=== PATIENT | female | born 1960 | race Hispanic/Latino ===

== ENCOUNTER 2022-03-14 17:15 | Emergency (ER) | payer MEDICARE, OTHER ==
[2022-03-14] MEDS ORDERED: Morphine 4 MG/ML VIAL ONE (20:23)
[2022-03-14] MEDS ORDERED: Acetaminophen 500 MG TAB ONE (20:23)
[2022-03-14] MEDS ORDERED: Ketorolac Tromethamine 30 MG/ML VIAL ONE (20:23)
== END 2022-03-14 22:12 | disposition home or self-care (01) ==
LOC: CSHERS 17:15
DX: M54.42 Lumbago with sciatica, left side (principal); E11.9 Type 2 diabetes mellitus without complications; E03.9 Hypothyroidism, unspecified; E78.5 Hyperlipidemia, unspecified; I10 Essential (primary) hypertension
CPT/HCPCS: 93923; 96372; J1885; J2270

== ENCOUNTER 2022-04-03 09:50 | Inpatient (IN) | payer OTHER, MEDICAID ==
[~2022-04-03 09:50] MED LIST: Iopamidol 370 76% 100 ML VIAL ONE
[2022-04-03 10:28] LABS: #Basophils 0.1 10x3/uL (0.0-0.2); #Eosinphils 0.2 10x3/uL (0.0-0.5); #Monocytes 0.6 10x3/uL (0.0-1.1); #Neutrophils 4.7 10x3/uL (1.5-8.4); %Basophils 0.7 % (0.0-2.0); %Lymphocytes 21.4 % (18.0-47.0); %Monocytes 8.9 % (0.0-10.0); %Neutrophils 65.7 % (40.0-75.0); Hemoglobin 12.7 g/dL (12.0-15.5); Mean Corpuscular Hemoglobin 30.4 pg (27.0-33.0); Mean Corpuscular Volume 89.5 fl (81.6-98.3); Mean Platelet Volume 9.6 fl (7.4-10.4); Platelet Count 198 10x3/uL (150-450); RBC Distribution Width 13.6 % (11.5-14.5); Red Blood Cell (RBC) Count 4.18 10x6/uL (3.90-5.03); White Blood Cell (WBC) Count 7.1 10x3/uL (3.5-10.5)
[2022-04-03 10:38] LABS: ALT (SGPT) 10 U/L (8-55); AST (SGOT) 20 U/L (5-34); Albumin 3.9 g/dL (3.5-5.0); Alkaline Phosphatase 72 U/L (40-110); Anion Gap 14 mmol/L (10-20); BUN (Urea Nitrogen) 14 mg/dL (9.8-20.1); Bilirubin, Total 0.7 mg/dL (0.2-1.2); Calc. Creatinine Clearance 0 mL/min (70-130); Calcium 8.6 mg/dL (7.8-10.44); Carbon Dioxide 24 mmol/L (22-29); Chloride 109 mmol/L (98-107); Globulin 2.8 g/dL (2.4-3.5); Glucose 152 mg/dL (70-105); Protein, Total 6.7 g/dL (6.0-8.3); Sodium 143 mmol/L (136-145)
[2022-04-03 11:11] LABS: SARS-CoV-2 NAA Rapid Test Not Detected (NotDetected)
[2022-04-03] MEDS ORDERED: Furosemide 40 MG/4 ML VIAL ONE (13:28)
[2022-04-03] MEDS ORDERED: Cefepime 2 GM VIAL ONE (13:28)
[2022-04-03] MEDS ORDERED: Acetaminophen 325 MG TAB PO PRN (14:10)
[2022-04-03] MEDS ORDERED: Senokot S 8.6-50 MG TAB PO PRN (14:10)
[2022-04-03] MEDS ORDERED: Guaifenesin DM 100-10/5 ML UDCUP PO PRN (14:10)
[2022-04-03] MEDS ORDERED: Ondansetron PF 4 MG/2 ML Vial IVP PRN (14:10)
[2022-04-03] MEDS ORDERED: Ondansetron ODT 4 MG TAB PO PRN (14:10)
[2022-04-03] MEDS ORDERED: Dextrose 50% Abboject 50 ML SYRINGE SLOW IVP PRN (14:32)
[2022-04-03] MEDS ORDERED: Dextrose 5% in Water 1,000 ML IV PRN (14:32)
[2022-04-03] MEDS ORDERED: Sodium Chloride 0.9% 1,000 ML IV SCH (17:30)
[2022-04-03] MEDS ORDERED: Azithromycin 500 MG in Sodium Chloride 0.9% 250 ML 250 ML IVPB SCH (18:00)
[2022-04-03 18:29] VITALS: BMI 46.0
[2022-04-03] MEDS: Insulin Regular 300 UNITS/3 ML VIAL SC PRN (18:49)
[2022-04-03] MEDS: HYDROcodone/Acetaminophen 10/325 mg Tablet PO SCH (20:46)
[2022-04-03] MEDS ORDERED: Atorvastatin Calcium 40 MG TAB PO SCH (21:00)
[2022-04-03] MEDS ORDERED: Trihexyphenidyl 2 MG TAB PO SCH (21:00)
[2022-04-03] MEDS ORDERED: cefTRIAXone\\ROCEPHIN 1 GM in Sodium Chloride 0.9% 100 ML IVPB SCH (21:00)
[2022-04-03] MEDS ORDERED: Gabapentin 300 MG CAP PO SCH (21:00)
[2022-04-03] MEDS ORDERED: Lantus 1000 UNITS/10 ML VIAL SC SCH (21:00)
[2022-04-03] MEDS: Carbidopa/Levodopa CR 50-200 mg Tablet PO SCH (21:08)
[2022-04-03] MEDS ORDERED: Baclofen 10 MG TAB PO SCH (21:15)
[2022-04-03] MEDS ORDERED: NUCYNTA 200 MG PO SCH ×2 (22:15→22:30)
[2022-04-04 05:15] LABS: #Basophils 0.1 10x3/uL (0.0-0.2); #Eosinphils 0.2 10x3/uL (0.0-0.5); #Monocytes 0.8 10x3/uL (0.0-1.1); #Neutrophils 5.1 10x3/uL (1.5-8.4); %Basophils 0.7 % (0.0-2.0); %Eosinophils 2.7 % (0.0-6.0); %Monocytes 9.1 % (0.0-10.0); %Neutrophils 59.3 % (40.0-75.0); Hemoglobin 12.1 g/dL (12.0-15.5); Mean Corpuscular HGB CONC 33.1 g/dL (32.0-36.0); Mean Corpuscular Hemoglobin 30.2 pg (27.0-33.0); Mean Corpuscular Volume 91.3 fl (81.6-98.3); Mean Platelet Volume 9.5 fl (7.4-10.4); Platelet Count 189 10x3/uL (150-450); RBC Distribution Width 13.3 % (11.5-14.5); Red Blood Cell (RBC) Count 4.01 10x6/uL (3.90-5.03); White Blood Cell (WBC) Count 8.6 10x3/uL (3.5-10.5)
[2022-04-04] MEDS ORDERED: HYDROcodone/Acetaminophen 10/325 mg Tablet PO PRN (05:25)
[2022-04-04] MEDS: HYDROcodone/Acetaminophen 10/325 mg Tablet PO SCH (05:33)
[2022-04-04 05:34] LABS: Anion Gap 13 mmol/L (10-20); BUN (Urea Nitrogen) 14 mg/dL (9.8-20.1); Calc. Creatinine Clearance 180 mL/min (70-130); Calcium 8.6 mg/dL (7.8-10.44); Carbon Dioxide 27 mmol/L (22-29); Chloride 104 mmol/L (98-107); Glucose 180 mg/dL (70-105); Potassium 3.4 mmol/L (3.5-5.1); Sodium 141 mmol/L (136-145)
[2022-04-04] MEDS ORDERED: Ventolin HFA Inhaler 60 PUFF INHALER INH PRN (05:35)
[2022-04-04] MEDS: Insulin Regular 300 UNITS/3 ML VIAL SC PRN (05:41)
[2022-04-04] MEDS ORDERED: Furosemide 40 MG/4 ML VIAL SLOW IVP SCH (06:00)
[2022-04-04] MEDS ORDERED: Levothyroxine Sodium 88 MCG TAB PO SCH (06:00)
[2022-04-04] MEDS ORDERED: Mometasone/Formoterol 200/5 60 PUFF INH SCH (06:30)
[2022-04-04] MEDS ORDERED: HumaLOG 300 UNITS/3 ML VIAL SC SCH ×2 (07:30→08:00)
[2022-04-04] MEDS ORDERED: Carvedilol 25 MG TAB PO SCH ×2 (08:00)
[2022-04-04] MEDS ORDERED: Lantus 1000 UNITS/10 ML VIAL SC SCH (09:00)
[2022-04-04] MEDS ORDERED: Mometasone 100 MCG/PUFF (1 INHALER) INH SCH (09:00)
[2022-04-04] MEDS ORDERED: Clopidogrel Bisulfate 75 MG TAB PO SCH ×2 (09:00)
[2022-04-04] MEDS ORDERED: Trihexyphenidyl 2 MG TAB PO SCH (09:00)
[2022-04-04] MEDS ORDERED: TAPENTADOL HCL 200 MG PO SCH (09:00)
[2022-04-04] MEDS ORDERED: Enoxaparin Sodium 40 MG/0.4 ML SYRINGE SC SCH (09:00)
[2022-04-04 09:10] LABS: Legionella Urinary Ag Negative (Negative); Strep pneumo Urine Ag NEGATIVE (NEGATIVE)
[2022-04-04] MEDS: Gabapentin 400 MG CAP PO SCH ×2 (10:18→16:42)
[2022-04-04] MEDS: Carbidopa/Levodopa 10-100 mg Tablet PO SCH ×2 (10:22→16:42)
[2022-04-04] MEDS: Carbidopa/Levodopa CR 50-200 mg Tablet PO SCH (10:23)
[2022-04-04] MEDS: Baclofen 10 MG TAB PO SCH ×2 (10:25→16:42)
[2022-04-04 12:17] VITALS: TEMP 97.8
[2022-04-04] MEDS ORDERED: cefTRIAXone\\ROCEPHIN 1 GM in Sodium Chloride 0.9% 100 ML IVPB SCH (12:30)
[2022-04-04] MEDS ORDERED: Azithromycin 500 MG in Sodium Chloride 0.9% 250 ML 250 ML IVPB SCH (12:30)
[2022-04-04 13:36] VITALS: BP 146/40
[2022-04-04] MEDS ORDERED: Atorvastatin Calcium 40 MG TAB PO SCH (21:00)
== END 2022-04-04 18:07 | disposition home health service (06) | DRG 193 ==
LOC: CSHERS 09:50 → CSHTELE 17:18
PROVIDERS: ADMIT Hospitalist; ATTEND Family Medicine
DX: J18.9 Pneumonia, unspecified organism (principal); J96.01 Acute respiratory failure with hypoxia; Z68.42 Body mass index [BMI] 45.0-49.9, adult; G20 Parkinson's disease; E78.5 Hyperlipidemia, unspecified; E11.51 Type 2 diabetes mellitus with diabetic peripheral angiopathy without gangrene; E66.01 Morbid (severe) obesity due to excess calories; I11.0 Hypertensive heart disease with heart failure; I50.9 Heart failure, unspecified; M19.90 Unspecified osteoarthritis, unspecified site; E03.9 Hypothyroidism, unspecified; M54.9 Dorsalgia, unspecified; I05.0 Rheumatic mitral stenosis; Z20.822 Contact with and (suspected) exposure to COVID-19; Z96.653 Presence of artificial knee joint, bilateral; Z96.642 Presence of left artificial hip joint; Z82.49 Family history of ischemic heart disease and other diseases of the circulatory system; I25.2 Old myocardial infarction; Z98.890 Other specified postprocedural states; Z79.899 Other long term (current) drug therapy; Z90.710 Acquired absence of both cervix and uterus; Z79.4 Long term (current) use of insulin; Z79.890 Hormone replacement therapy; Z79.891 Long term (current) use of opiate analgesic; Z79.2 Long term (current) use of antibiotics
CPT/HCPCS: 36415; 36416; 71045; 71275; 80048; 80053; 83735; 83880; 84145; 84443; 84484; 85025; 85379; 87040; 87449; 87899; 93005; 93306; J0456; J0692; J0696; J1650; J1815; J1940; J3490; J7050; Q9967

== ENCOUNTER 2024-03-09 13:32 | Emergency (ER) | payer OTHER ==
[2024-03-09 14:41] LABS: #Basophils 0.05 10x3/uL (0.0-0.2); #Monocytes 0.45 10x3/uL (0.0-1.1); #Neutrophils 4.24 10x3/uL (1.5-8.4); %Basophils 0.8 % (0.0-2.0); %Eosinophils 1.6 % (0.0-6.0); %Lymphocytes 21.5 % (18.0-47.0); %Monocytes 7.3 % (0.0-10.0); %Neutrophils 68.5 % (40.0-75.0); Hematocrit 36.7 % (34.9-44.5); Hemoglobin 12.5 g/dL (12.0-15.5); Mean Corpuscular HGB CONC 34.1 g/dL (32.0-36.0); Mean Corpuscular Hemoglobin 30.4 pg (27.0-33.0); Mean Corpuscular Volume 89.3 fl (81.6-98.3); Mean Platelet Volume 9.5 fl (7.4-10.4); Platelet Count 249 10x3/uL (150-450); RBC Distribution Width 15.9 % (11.5-14.5); Red Blood Cell (RBC) Count 4.11 10x6/uL (3.90-5.03); White Blood Cell (WBC) Count 6.2 10x3/uL (3.5-10.5)
[2024-03-09 15:04] LABS: PTT 22.4 sec (22.0-33.0); Prothrombin Time 11.1 sec (9.5-12.1)
[2024-03-09 15:15] LABS: Troponin I 0.042 ng/mL (< 0.028)
[2024-03-09] MEDS ORDERED: Amiodarone 150 MG/3 ML VIAL ONE (15:22)
[2024-03-09 15:24] LABS: ALT (SGPT) 13 U/L (8-55); AST (SGOT) 44 U/L (5-34); Albumin 3.3 g/dL (3.4-4.8); Alkaline Phosphatase 45 U/L (40-110); Anion Gap 16 mmol/L (10-20); BUN (Urea Nitrogen) 12 mg/dL (9.8-20.1); Bilirubin, Total 0.4 mg/dL (0.2-1.2); Calc. Creatinine Clearance 0 mL/min (70-130); Calcium 8.4 mg/dL (7.8-10.44); Carbon Dioxide 20 mmol/L (23-31); Chloride 109 mmol/L (98-107); Estimated GFR 98; Globulin 2.9 g/dL (2.4-3.5); Glucose 101 mg/dL (80-115); Potassium 3.8 mmol/L (3.5-5.1); Protein, Total 6.2 g/dL (5.8-8.1); Sodium 141 mmol/L (136-145)
[2024-03-09 16:07] LABS: Bilirubin Neg (Negative); Blood, Urine Negative (Negative); Clarity Clear (Clear); Glucose, Urine (Dipstick) Normal (Negative); Ketone, Urine Negative (Negative); Leukocyte Negative (Negative); Nitrite Negative (Negative); Protein, Urine (Dipstick) Negative (Neg-Trace); Urobilinogen Normal mg/dL (Less than 2); pH, Urine 6.5 (5.0-9.0)
[2024-03-09] MEDS ORDERED: Morphine 4 MG/ML VIAL ONE ×2 (16:10→17:13)
[2024-03-09] MEDS ORDERED: Ondansetron PF 4 MG/2 ML Vial ONE (16:11)
[2024-03-09] MEDS ORDERED: Acetaminophen 500 MG TAB ONE (16:17)
[2024-03-09 16:25] LABS: CAUTI Indications for Culture Dysuria,urgency,freq; RBC/HPF None Seen HPF (0-3); Squamous Epithelial 0-3 HPF (0-3); WBC/HPF 0-3 HPF (0-3)
[2024-03-09 16:26] LABS: Bacteria/HPF None Seen HPF (None Seen)
[2024-03-09 16:27] LABS: Urine Culture Reflex No No
== END 2024-03-09 19:34 | disposition short-term general hospital (02) ==
LOC: CSHERS 13:32
DX: I61.9 Nontraumatic intracerebral hemorrhage, unspecified (principal); I48.92 Unspecified atrial flutter; R79.89 Other specified abnormal findings of blood chemistry; E11.9 Type 2 diabetes mellitus without complications; I10 Essential (primary) hypertension; Z86.73 Personal history of transient ischemic attack (TIA), and cerebral infarction without residual deficits
CPT/HCPCS: 70450; 71045; 80053; 81001; 83605; 83880; 84484; 85025; 85610; 85730; 93005; 96374; 96375; J0282; J2270; J2405

== ENCOUNTER 2024-04-25 22:32 | Inpatient (IN) | payer MEDICARE, MEDICAID ==
[2024-04-26 00:08] LABS: #Basophils 0.07 10x3/uL (0.0-0.2); #Eosinphils 0.14 10x3/uL (0.0-0.5); #Monocytes 0.58 10x3/uL (0.0-1.1); #Neutrophils 4.57 10x3/uL (1.5-8.4); %Lymphocytes 23.1 % (18.0-47.0); %Monocytes 8.3 % (0.0-10.0); %Neutrophils 65.5 % (40.0-75.0); Hematocrit 41.2 % (34.9-44.5); Hemoglobin 13.7 g/dL (12.0-15.5); Mean Corpuscular HGB CONC 33.3 g/dL (32.0-36.0); Mean Corpuscular Hemoglobin 30.4 pg (27.0-33.0); Mean Corpuscular Volume 91.6 fL (81.6-98.3); Mean Platelet Volume 9.7 fL (7.4-10.4); Platelet Count 245 10x3/uL (150-450); RBC Distribution Width 16.8 % (11.5-14.5)
[2024-04-26 00:13] LABS: ALT (SGPT) 9 U/L (8-55); AST (SGOT) 22 U/L (5-34); Albumin 3.5 g/dL (3.4-4.8); Alkaline Phosphatase 45 U/L (40-110); Anion Gap 13 mmol/L (10-20); BUN (Urea Nitrogen) 15 mg/dL (9.8-20.1); Bilirubin, Total 0.5 mg/dL (0.2-1.2); Calc. Creatinine Clearance 0 mL/min (70-130); Calcium 9.4 mg/dL (7.8-10.44); Carbon Dioxide 29 mmol/L (23-31); Chloride 104 mmol/L (98-107); Estimated GFR 79; Globulin 3.1 g/dL (2.4-3.5); Glucose 324 mg/dL (80-115); Potassium 3.2 mmol/L (3.5-5.1); Protein, Total 6.6 g/dL (5.8-8.1); Sodium 143 mmol/L (136-145)
[2024-04-26] MEDS ORDERED: Furosemide 40 MG (4 mL) VIAL ONE (01:32)
[2024-04-26] MEDS ORDERED: Glucagon 1 MG/ML KIT IM PRN (02:01)
[2024-04-26] MEDS ORDERED: Dextrose 5% in Water 1,000 ML IV PRN (02:01)
[2024-04-26] MEDS ORDERED: Ondansetron PF 4 MG/2 ML Vial IVP PRN (02:01)
[2024-04-26] MEDS ORDERED: Calcium Carbonate 500 MG ChewTAB PO PRN (02:01)
[2024-04-26] MEDS ORDERED: Dextrose 50% Abboject 50 ML SYRINGE SLOW IVP PRN (02:01)
[2024-04-26] MEDS ORDERED: Guaifenesin DM 100-10/5 ML UDCUP PO PRN (02:01)
[2024-04-26 06:06] VITALS: BMI 46.0
[2024-04-26] MEDS: Mometasone 100 MCG/PUFF (1 INHALER) INH SCH (07:07)
[2024-04-26 07:36] LABS: Anion Gap 14 mmol/L (10-20); BUN (Urea Nitrogen) 11 mg/dL (9.8-20.1); Calc. Creatinine Clearance 151 mL/min (70-130); Calcium 8.7 mg/dL (7.8-10.44); Carbon Dioxide 26 mmol/L (23-31); Cardiac Risk 2.7 (Less than 4.5); Chloride 105 mmol/L (98-107); Cholesterol 106 mg/dl (< 200 Desired); Estimated GFR 94; Glucose 214 mg/dL (80-115); HDL Cholesterol 40 mg/dL (>60 Neg Risk); LDL Cholesterol, Calculated 46 mg/dL; Magnesium 1.7 mg/dL (1.6-2.6); Potassium 3.2 mmol/L (3.5-5.1); Sodium 142 mmol/L (136-145); Triglycerides 100 mg/dL (Less than 150)
[2024-04-26] MEDS: Aspirin 81 mg Enteric Coated Tablet PO SCH (08:24)
[2024-04-26] MEDS: Amiodarone 200 MG TAB PO SCH (08:24)
[2024-04-26] MEDS: Pantoprazole DR 40 MG TAB PO SCH (08:24)
[2024-04-26] MEDS: Potassium Chloride 20 MEQ TAB PO SCH ×2 (08:25→08:28)
[2024-04-26] MEDS: Sertraline 25 MG TAB PO SCH (08:25)
[2024-04-26] MEDS: Furosemide 40 MG TAB PO SCH (08:26)
[2024-04-26] MEDS: Levothyroxine Sodium 88 MCG TAB PO SCH (08:26)
[2024-04-26] MEDS: Trospium 20 MG TAB PO SCH (08:28)
[2024-04-26] MEDS: Trihexyphenidyl 2 MG TAB PO SCH (08:28)
[2024-04-26 08:29] LABS: Thyroid Stimulating Hormone 0.71 uIU/mL (0.35-4.94)
[2024-04-26] MEDS: Carbidopa/Levodopa 25-100 mg Tablet PO SCH (08:29)
[2024-04-26] MEDS: Lantus 1000 UNITS/10 ML VIAL SC SCH (08:34)
[2024-04-26] MEDS: Enoxaparin 40 MG (0.4 mL) SYRINGE SC SCH (08:35)
[2024-04-26] MEDS ORDERED: ISTRADEFYLLINE 20 MG PO SCH (09:00)
[2024-04-26] MEDS: Magnesium 2 GM/50 ML(in water) 2 GM in Premix 1 BAG IVPB SCH (09:49)
[2024-04-26 10:06] LABS: Bilirubin Neg (Negative); Blood, Urine Negative (Negative); Clarity Clear (Clear); Glucose, Urine (Dipstick) 100 mg/dL (Negative); Ketone, Urine Negative (Negative); Leukocyte Negative (Negative); Nitrite Negative (Negative); Protein, Urine (Dipstick) Negative (Neg-Trace); Specific Gravity, Urine 1.015 (1.005-1.030)
[2024-04-26 10:31] LABS: Bacteria/HPF 2+ HPF (None Seen); RBC/HPF 0-3 HPF (0-3); Transitional Epithelial 0-3 HPF (None Seen)
[2024-04-26] MEDS ORDERED: Polyethylene Glycol 3350 17 GM Packet PO PRN (12:13)
[2024-04-26] MEDS: HYDROcodone/Acetaminophen 5/325 mg Tablet PO PRN (12:24)
[2024-04-26] MEDS: Gabapentin 300 MG CAP PO SCH (15:01)
[2024-04-26] MEDS: Baclofen 10 MG TAB PO SCH (15:01)
[2024-04-26] MEDS: Insulin Lispro 100 UNIT/ML 10 ML VIAL SC PRN (17:24)
[2024-04-26] MEDS: Lorazepam 0.5 MG TAB PO PRN (17:24)
[2024-04-26] MEDS ORDERED: clonazePAM 1 MG TAB PO SCH (21:00)
[2024-04-26] MEDS: Atorvastatin Calcium 40 MG TAB PO SCH (21:39)
[2024-04-26] MEDS: Magnesium Oxide 400 MG TAB PO SCH (21:39)
[2024-04-26] MEDS: Senokot S 8.6-50 MG TAB PO SCH (21:43)
[2024-04-27 04:39] LABS: Potassium 3.4 mmol/L (3.5-5.1)
[2024-04-27] MEDS: Potassium Chloride 20 MEQ TAB PO SCH ×2 (10:13→16:16)
[2024-04-27] MEDS: Mometasone/Formoterol 200/5 60 PUFF INH SCH (10:40)
[2024-04-27 14:29] LABS: Anion Gap 14 mmol/L (10-20); BUN (Urea Nitrogen) 12 mg/dL (9.8-20.1); Calc. Creatinine Clearance 149 mL/min (70-130); Calcium 9.3 mg/dL (7.8-10.44); Carbon Dioxide 27 mmol/L (23-31); Chloride 103 mmol/L (98-107); Estimated GFR 93; Glucose 219 mg/dL (80-115); Potassium 3.9 mmol/L (3.5-5.1); Sodium 140 mmol/L (136-145)
[2024-04-27 20:14] LABS: Digoxin 0.88 ng/mL (0.8-2.0)
[2024-04-27] MEDS: Acetaminophen 325 MG TAB PO PRN (21:39)
[2024-04-28 05:04] LABS: Anion Gap 11 mmol/L (10-20); BUN (Urea Nitrogen) 12 mg/dL (9.8-20.1); Calc. Creatinine Clearance 137 mL/min (70-130); Carbon Dioxide 29 mmol/L (23-31); Chloride 104 mmol/L (98-107); Estimated GFR 85; Glucose 203 mg/dL (80-115); Potassium 3.6 mmol/L (3.5-5.1); Sodium 140 mmol/L (136-145)
[2024-04-28 05:49] VITALS: TEMP 98.1
[2024-04-28 07:54] VITALS: BP 117/66
[2024-04-28] MEDS: Potassium Chloride 20 MEQ TAB PO SCH (09:04)
[2024-04-28] MEDS: Digoxin 0.25 MG TAB PO SCH (10:21)
[2024-04-29] MEDS ORDERED: Digoxin 0.25 MG TAB PO SCH (09:00)
== END 2024-04-28 11:50 | disposition home health service (06) | DRG 71 ==
LOC: CSHERS 22:32 → CSHTELE 04-26 02:01 → OBSVTOIN 04-28 10:10
PROVIDERS: ADMIT Student in an Organized Health Care Education/Training Program; ATTEND Internal Medicine
DX: G93.40 Encephalopathy, unspecified (principal); F01.52 Vascular dementia, unspecified severity, with psychotic disturbance; I48.20 Chronic atrial fibrillation, unspecified; Z68.42 Body mass index [BMI] 45.0-49.9, adult; E87.6 Hypokalemia; G20.A1 Parkinson's disease without dyskinesia, without mention of fluctuations; Z79.899 Other long term (current) drug therapy; Z79.4 Long term (current) use of insulin; Z79.82 Long term (current) use of aspirin; E78.5 Hyperlipidemia, unspecified; E03.9 Hypothyroidism, unspecified; E66.01 Morbid (severe) obesity due to excess calories; Z98.890 Other specified postprocedural states; F91.9 Conduct disorder, unspecified; E11.9 Type 2 diabetes mellitus without complications; Z96.653 Presence of artificial knee joint, bilateral; F41.9 Anxiety disorder, unspecified; G89.4 Chronic pain syndrome; I50.9 Heart failure, unspecified; I11.0 Hypertensive heart disease with heart failure; E83.42 Hypomagnesemia
CPT/HCPCS: 36415; 36416; 70450; 70551; 71045; 80048; 80053; 80061; 80162; 81001; 82607; 83735; 83880; 84132; 84443; 84484; 85025; 93005; 93970; 96372; 96374; 96375; G0378; J1650; J1815; J1940; J3475

== ENCOUNTER 2024-05-10 17:46 | Emergency (ER) | payer MEDICARE, MEDICAID ==
[2024-05-10] MEDS ORDERED: diphenhydrAMINE 50 MG/ML VIAL ONE (19:22)
[2024-05-10] MEDS ORDERED: Ketorolac Tromethamine 30 MG (1 mL) VIAL ONE ×2 (19:23→21:37)
[2024-05-10 20:01] LABS: Bilirubin Neg (Negative); Blood, Urine Negative (Negative); Clarity Clear (Clear); Glucose, Urine (Dipstick) Normal (Negative); Ketone, Urine Negative (Negative); Leukocyte Negative (Negative); Nitrite Negative (Negative); Protein, Urine (Dipstick) Negative (Neg-Trace); Specific Gravity, Urine 1.005 (1.005-1.030); Urobilinogen Normal mg/dL (Less than 2)
[2024-05-10 20:12] LABS: Bacteria/HPF Rare-Few HPF (None Seen); CAUTI Indications for Culture Alt mental st,lethar; RBC/HPF 0-3 HPF (0-3); Squamous Epithelial 0-3 HPF (0-3); Urine Culture Reflex No No; WBC/HPF 0-3 HPF (0-3)
[2024-05-10 20:35] LABS: #Basophils 0.07 10x3/uL (0.0-0.2); #Eosinphils 0.13 10x3/uL (0.0-0.5); #Monocytes 0.52 10x3/uL (0.0-1.1); #Neutrophils 3.95 10x3/uL (1.5-8.4); %Basophils 1.1 % (0.0-2.0); %Eosinophils 2.1 % (0.0-6.0); %Lymphocytes 26.1 % (18.0-47.0); %Monocytes 8.2 % (0.0-10.0); %Neutrophils 62.3 % (40.0-75.0); Hematocrit 43.6 % (34.9-44.5); Hemoglobin 14.1 g/dL (12.0-15.5); Mean Corpuscular HGB CONC 32.3 g/dL (32.0-36.0); Mean Corpuscular Hemoglobin 30.7 pg (27.0-33.0); Mean Platelet Volume 9.8 fL (7.4-10.4); Platelet Count 223 10x3/uL (150-450); RBC Distribution Width 16.9 % (11.5-14.5); Red Blood Cell (RBC) Count 4.59 10x6/uL (3.90-5.03); White Blood Cell (WBC) Count 6.3 10x3/uL (3.5-10.5)
[2024-05-10 20:42] LABS: ALT (SGPT) 14 U/L (8-55); AST (SGOT) 19 U/L (5-34); Albumin 3.4 g/dL (3.4-4.8); Alkaline Phosphatase 48 U/L (40-110); Anion Gap 14 mmol/L (10-20); BUN (Urea Nitrogen) 15 mg/dL (9.8-20.1); Bilirubin, Total 0.5 mg/dL (0.2-1.2); Calc. Creatinine Clearance 0 mL/min (70-130); Carbon Dioxide 25 mmol/L (23-31); Chloride 108 mmol/L (98-107); Estimated GFR 89; Glucose 157 mg/dL (80-115); Potassium 3.6 mmol/L (3.5-5.1); Protein, Total 6.4 g/dL (5.8-8.1); Sodium 143 mmol/L (136-145)
[2024-05-10] MEDS ORDERED: Acetaminophen 500 MG TAB ONE (21:37)
[2024-05-10] MEDS ORDERED: Magnesium 2 GM/50 ML BAG (IN WATER) ONE (21:38)
[2024-05-11 13:08] LABS: Digoxin 1.97 ng/mL (0.8-2.0)
== END 2024-05-10 23:05 | disposition home or self-care (01) ==
LOC: CSHERS 17:46
DX: R51.9 Headache, unspecified (principal); E83.42 Hypomagnesemia; I11.0 Hypertensive heart disease with heart failure; I50.9 Heart failure, unspecified; E11.9 Type 2 diabetes mellitus without complications; Z86.73 Personal history of transient ischemic attack (TIA), and cerebral infarction without residual deficits; Z79.82 Long term (current) use of aspirin; Z79.4 Long term (current) use of insulin
CPT/HCPCS: 70450; 80053; 80162; 81001; 83880; 85025; J1200; J1885; J3475; 36415; 96365; 96375; 96376

== ENCOUNTER 2024-05-12 17:14 | Emergency (ER) | payer MEDICARE, MEDICAID ==
[2024-05-12] MEDS ORDERED: Acetaminophen 500 MG TAB ONE (18:23)
[2024-05-12] MEDS ORDERED: Furosemide 40 MG (4 mL) VIAL ONE (18:23)
[2024-05-12 18:53] LABS: #Basophils 0.07 10x3/uL (0.0-0.2); #Eosinphils 0.15 10x3/uL (0.0-0.5); #Monocytes 0.63 10x3/uL (0.0-1.1); #Neutrophils 5.78 10x3/uL (1.5-8.4); %Basophils 0.9 % (0.0-2.0); %Eosinophils 1.9 % (0.0-6.0); %Lymphocytes 17.2 % (18.0-47.0); %Monocytes 7.8 % (0.0-10.0); Hematocrit 39.9 % (34.9-44.5); Hemoglobin 13.2 g/dL (12.0-15.5); Mean Corpuscular HGB CONC 33.1 g/dL (32.0-36.0); Mean Corpuscular Hemoglobin 31.1 pg (27.0-33.0); Mean Corpuscular Volume 93.9 fL (81.6-98.3); Mean Platelet Volume 9.7 fL (7.4-10.4); Platelet Count 234 10x3/uL (150-450); RBC Distribution Width 16.6 % (11.5-14.5); Red Blood Cell (RBC) Count 4.25 10x6/uL (3.90-5.03)
[2024-05-12 19:01] LABS: INR-International Normal Ratio 1.1; PTT 24.1 sec (22.0-33.0); Prothrombin Time 11.4 sec (9.5-12.1)
[2024-05-12 19:05] LABS: ALT (SGPT) Less than 7 U/L (8-55); AST (SGOT) 14 U/L (5-34); Albumin 3.3 g/dL (3.4-4.8); Alkaline Phosphatase 48 U/L (40-110); Anion Gap 13 mmol/L (10-20); BUN (Urea Nitrogen) 19 mg/dL (9.8-20.1); Bilirubin, Total 0.5 mg/dL (0.2-1.2); Calc. Creatinine Clearance 0 mL/min (70-130); Carbon Dioxide 28 mmol/L (23-31); Chloride 106 mmol/L (98-107); Estimated GFR 83; Glucose 156 mg/dL (80-115); Potassium 3.8 mmol/L (3.5-5.1); Protein, Total 6.3 g/dL (5.8-8.1); Sodium 143 mmol/L (136-145)
[2024-05-12 19:11] LABS: Troponin I Less than 0.010 ng/mL (< 0.028)
[2024-05-12 20:25] LABS: Bilirubin Neg (Negative); Blood, Urine 10 (Negative); Clarity Clear (Clear); Glucose, Urine (Dipstick) Normal (Negative); Ketone, Urine Negative (Negative); Leukocyte Negative (Negative); Nitrite Negative (Negative); Protein, Urine (Dipstick) Negative (Neg-Trace); Specific Gravity, Urine 1.005 (1.005-1.030); Urobilinogen Normal mg/dL (Less than 2)
[2024-05-12 21:03] LABS: Bacteria/HPF Rare-Few HPF (None Seen); CAUTI Indications for Culture Pelvic or flank pain; RBC/HPF 0-3 HPF (0-3); Squamous Epithelial 0-3 HPF (0-3); WBC/HPF 0-3 HPF (0-3)
[2024-05-12 21:06] LABS: Urine Culture Reflex No No
[2024-05-12 22:30] LABS: Digoxin 1.84 ng/mL (0.8-2.0)
== END 2024-05-12 20:20 | disposition home or self-care (01) ==
LOC: CSHERS 17:14
DX: I11.0 Hypertensive heart disease with heart failure (principal); R60.0 Localized edema; I50.9 Heart failure, unspecified; E11.9 Type 2 diabetes mellitus without complications
CPT/HCPCS: 71045; 80053; 80162; 81001; 83880; 84484; 85025; 85610; 85730; 93005; J1940; 36415; 96374

== ENCOUNTER 2024-07-26 17:10 | Emergency (ER) | payer MEDICARE, OTHER ==
[2024-07-26] MEDS ORDERED: Ketorolac Tromethamine 30 MG (1 mL) VIAL ONE (20:44)
[2024-07-26] MEDS ORDERED: Gabapentin 100 MG CAP PO SCH (21:00)
== END 2024-07-26 21:20 | disposition home or self-care (01) ==
LOC: CSHERS 17:10
DX: M25.551 Pain in right hip (principal); M79.671 Pain in right foot; E11.9 Type 2 diabetes mellitus without complications; I11.0 Hypertensive heart disease with heart failure; I50.9 Heart failure, unspecified; W18.30XA Fall on same level, unspecified, initial encounter
CPT/HCPCS: 70450; 72170; 73502; 73564; 73610; 74176; J1885; 96372